=== PATIENT | female | born 1950 | race Caucasian/White ===

== ENCOUNTER → 2017-08-18 | Outpatient (CLI) | payer OTHER ==
[~2017-08-18] VITALS: Ht 167.6 cm; Wt 108.9 kg
[~2017-08-18] MED LIST: AMOXICILLIN 50500 MG PO; ASPIR 8181 MG PO; ATORVASTATIN CA40 MG PO; CENTRUM COMPLE1 EACH PO; CYMBALTA60 MG PO; DIOVAN320 MG PO; FLEXERIL PO; FLONASE 0.05%50 MCG NASAL; NORCO 5-325 TA1 EACH PO; PREVACID30 MG PO; PROAIR HFA8.5 GM INH; TOPROL XL25 MG PO; VITAMIN D2000 UNIT PO; WELLBUTRIN XL300 MG PO; XANAX 0.5 MG0.5 MG PO; XANAX1 MG PO
--- NOTE | ~2017-08-18 | CATHLAB ---
[facility] [address] [place] [address] INVASIVE PROCEDURE REPORT Name: TERRA GARCIA Room #: REG REPLACED BY [facility]#: [id number] Admission: 08/18/17 Attend Phys: Erwin Ford MD Discharge: Date of : 54 Date of Service: 08/18/17 1404 Report #: [id number] THIS REPORT FOR: //name// APPROVED REPORT Study performed: 08/18/2017 09:24:58 Patient Details Patient Status: Out-Patient Room #: The patient is a 67 year-old female Event Personnel Erwin Ford Pulper Tender, Javier Layne RN, Christi Kaur Sandifer, David Monitor Procedures Performed Left Heart Cath w/or w/o Coronaries [id number] [facility] Indication Chest pain Risk Factors Hypercholesterolemia, Hypertension Procedure Narrative The Right Groin^ was infiltrated with 1% Lidocaine subcutaneous anesthesia. A PINNACLE 4FR Sheath #[id number] sheath was inserted into the RFA^. Coronary angiography was performed using coronary diagnostic catheters. The right coronary system was accessed and visualized with a JR4 catheter. The left coronary system was accessed and visualized with a JL4 catheter. The left ventricle was accessed and visualized with a PIGTAIL catheter. Left ventricular/Aortic Valve gradient assessed via catheter pullback. Left ventriculogram was performed in 30 degree projection. Hemostasis was obtained with manual pressure following sheath removal without any complications. The patient tolerated the procedure well and there were no complications associated with the procedure. There was no hematoma. Intraoperative Conscious Sedation Sedation start time: 9.53 Case end Time: 10.06 Fentanyl 50 mcg Versed 1.5 mg Fluoro Time: 2.09 minutes [facility] [address] [place] [address] INVASIVE PROCEDURE REPORT Name: TERRA GARCIA Room #: REG REPLACED BY [facility]#: [id number] Admission: 08/18/17 Attend Phys: Erwin Ford MD Discharge: Date of : 54 Date of Service: 08/18/17 1404 Report #: [id number] Dose: 675 mGy Contrast Type and Amount: Visipaque 110 ml Coronary Angiography The patient's coronary anatomy is right dominant. Diagnostic Cath Left Main Patent vessel, with no flow-limiting lesions. LAD Moderate size caliber vessel, traveling down the anterior wall, wrapping around the apex and terminating in the distal inferior wall. There are no flow-limiting lesions in the LAD. Diagonal 1 Small-caliber vessel, with no flow-limiting lesions. Circumflex Supplies a moderate size OM1 vessel. OM1 Patent vessel, with no flow-limiting lesions. Right Coronary Dominant vessel, with no flow-limiting lesions. R PDA Patent vessel, with no flow-limiting lesions. RPLV Patent vessel, with no flow-limiting lesions. Left Ventriculography The left ventricle is normal in size with lownormal contractility. The left ventricular ejection fraction is estimated to be 50%. Hemodynamics The aortic pressure is 125/69 mmHg with a mean of 92 mmHg. The left ventricular pressure is 126/18 mmHg with a mean of mmHg. The left ventricular end diastolic pressure is 24 mmHg. Conclusion 1. Angiographically normal coronary arteries. 2. Right dominant system. 3. Borderline lownormal LV systolic function. 4. Risk factor management is recommended. <ELECTRONICALLY SIGNED> By: Erwin Ford MD 08/18/17 1404 1404 1404 Erwin Ford MD /INF
[2017-08-18 08:52] LABS: HEMATOCRIT 36.3 % (37.0-47.0); MCH 27.8 pg (26.0-34.0); MCV 84.2 fL (80.0-100.0); RBC 4.31 mil/uL (4.20-5.00); RDW 15.9 % (10.5-14.5); WBC 5.3 thou/uL (4.0-11.0)
[2017-08-18 08:59] VITALS: BP 127/64
[2017-08-18 09:00] LABS: CALCIUM 9.6 mg/dL (8.5-10.1); CREATININE 1.1 mg/dL (0.6-1.0); POTASSIUM 3.9 mmol/L (3.5-5.1)
== END | disposition home or self-care (01) ==
LOC: CATH 08:02
PROVIDERS: Internal Medicine Cardiovascular Disease
DX: R07.9 Chest pain, unspecified (principal); I10 Essential (primary) hypertension; E78.00 Pure hypercholesterolemia, unspecified; E78.5 Hyperlipidemia, unspecified; D64.9 Anemia, unspecified; F41.8 Other specified anxiety disorders; K21.9 Gastro-esophageal reflux disease without esophagitis; F32.89 Other specified depressive episodes; Z90.49 Acquired absence of other specified parts of digestive tract; Z90.710 Acquired absence of both cervix and uterus; Z79.82 Long term (current) use of aspirin; Z79.899 Other long term (current) drug therapy; Z79.891 Long term (current) use of opiate analgesic; Z98.890 Other specified postprocedural states; Z96.653 Presence of artificial knee joint, bilateral

== ENCOUNTER → 2020-01-01 | Outpatient (CLI) | payer OTHER, MEDICARE | LOC: SJCVC 13:11 | PROVIDERS: ATTEND Internal Medicine Cardiovascular Disease | DX: R94.31 Abnormal electrocardiogram [ECG] [EKG] (principal); R07.9 Chest pain, unspecified; I10 Essential (primary) hypertension; E78.5 Hyperlipidemia, unspecified; F41.9 Anxiety disorder, unspecified; F32.9 Major depressive disorder, single episode, unspecified ==

== ENCOUNTER → 2020-01-09 | Outpatient (CLI) | payer OTHER, MEDICARE | LOC: SJCVCIMAG 01-08 14:08 | PROVIDERS: ATTEND Internal Medicine | DX: R00.0 Tachycardia, unspecified (principal); I10 Essential (primary) hypertension; E78.5 Hyperlipidemia, unspecified; Z79.899 Other long term (current) drug therapy ==